=== PATIENT | male | born 1995 | race African-American/Black ===

== ENCOUNTER 2018-07-31 12:38 | Emergency (ER) | payer MEDICAID ==
[2018-07-31 14:06] VITALS: BP 122/79
--- NOTE | 2018-08-01 08:06 | ED ---
Skin Complaint - HPI Summary HPI Summary: Patient is a 23-year-old male who presents emergency department for rash to left lower lip that patient noticed yesterday. Patient stated she noted a small rash her left lower lip that appeared to be blistering. Patient states he scratched area percent. Patient is concerned about HSV. Patient denies having any pain to the area, fever, urinary symptoms, recent illness, fever, sore throat. He has no past medical history. Symptoms are mild in severity. No current modifying factors. - History of Current Complaint Chief Complaint: EDRashSkinAbscess Time Seen by Provider: 07/31/18 12:56 Stated Complaint: LIP/CHIN IRRATATION PER PT Hx Obtained From: Patient Pain Intensity: 0 Pain Scale Used: 0-10 Numeric - Allergy/Home Medications Allergies/Adverse Reactions: Allergies Allergy/AdvReac Type Severity Reaction Status Date / Time shellfish derived Allergy Shortness Verified 07/31/18 12:48 of Breath Home Medications: Home Medications NK [No Home Medications Reported] 07/31/18 [History Confirmed 07/31/18] PMH/Surg Hx/FS Hx/Imm Hx Previously Healthy: Yes Endocrine/Hematology History: Denies: Hx Diabetes, Hx Thyroid Disease Cardiovascular History: Denies: Hx Hypertension Respiratory History: Reports: Hx Asthma Denies: Hx Chronic Obstructive Pulmonary Disease (COPD) GI History: Denies: Hx Ulcer Infectious Disease History: No Infectious Disease History: Denies: Hx Hepatitis, Hx Human Immunodeficiency Virus (HIV), Traveled Outside the [place] in Last 30 Days - Family History Known Family History: Positive: Hypertension - Social History Occupation: Student Lives: With Family Alcohol Use: Occasionally Substance Use Type: Reports: Marijuana Smoking Status (MU): Light Every Day Tobacco Smoker Type: Cigarettes Amount Used/How Often: 1 PPD Length of Time of Smoking/Using Tobacco: 2 years Have You Smoked in the Last Year: Yes Review of Systems Constitutional: Negative Negative: Fever, Chills Eyes: Negative ENT: Negative Cardiovascular: Negative Respiratory: Negative Genitourinary: Negative Positive: Other - rash to lower lip All Other Systems Reviewed And Are Negative: Yes Physical Exam Triage Information Reviewed: Yes Vital Signs On Initial Exam: Initial Vitals Temp Pulse Resp BP Pulse Ox 97.8 F 93 16 130/90 96 07/31/18 12:46 07/31/18 12:46 07/31/18 12:46 07/31/18 12:46 07/31/18 12:46 Vital Signs Reviewed: Yes Appearance: Positive: Well-Appearing Skin: Positive: Warm, Dry Head/Face: Positive: Normal Head/Face Inspection Eyes: Positive: Normal, EOMI, [place] ENT: Positive: Pharynx normal, TMs normal, Other - Area noted to left lower lateral lip of very small 3 blisters. No pain, drainage edema. Neck: Positive: Supple Neurological: Positive: Normal, CN Intact II-III Psychiatric: Positive: Affect/Mood Appropriate Diagnostics - Vital Signs Vital Signs Temp Pulse Resp BP Pulse Ox 07/31/18 14:04 98.5 F 75 16 122/79 98 07/31/18 12:46 97.8 F 93 16 130/90 96 - Laboratory Lab Statement: Any lab studies that have been ordered have been reviewed, and results considered in the medical decision making process. Course/Dx - Course Course Of Treatment: Pt. presenting for evaluation of rash to lip. Rash does appear slightly vesicular but pt. has zero pain, so suspicion to HSV is low. Viral culture obtained. Pt. to fu with PCP. Will call if culture is positive. Basic wound care. Pt. understands and agrees with plan. - Differential Diagnoses - Skin Complaint Differential Diagnoses: Abscess, Cellulitis, Varicella Zoster - Diagnoses Provider Diagnoses: Rash Discharge - Sign-Out/Discharge Documenting (check all that apply): Patient Departure Patient Received Moderate/Deep Sedation with Procedure: No - Discharge Plan Condition: Good Disposition: HOME Patient Education Materials: Acute Rash (ED) Referrals: Gomez Contreras MD [Primary Care Provider] - Additional Instructions: Follow up with PCP Will call if culture is positive Keep clean and dry Return to ER if symptoms change or worsen - Billing Disposition and Condition Condition: GOOD Disposition: Home
[2018-08-01 21:53] LABS: HSV 1 PCR Positive (Negative); Herpes Source LIP
--- NOTE | 2018-08-02 16:13 | PN ---
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
--- NOTE | 2018-08-03 09:32 | PN ---
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
== END 2018-07-31 14:04 | disposition home or self-care (01) ==
LOC: ED 12:38
DX: R21 Rash and other nonspecific skin eruption (principal); J45.909 Unspecified asthma, uncomplicated; F17.210 Nicotine dependence, cigarettes, uncomplicated
CPT/HCPCS: 36415; 86703; 87529; 99282